=== PATIENT | female | born 1995 | race Caucasian/White ===

== ENCOUNTER 2019-02-06 14:14 | Inpatient (IN) | payer SELFPAY ==
[~2019-02-06] VITALS: Ht 162.6 cm; Wt 87.5 kg
[2019-02-06 14:56] VITALS: Ht 162.6 cm; Wt 87.5 kg
[2019-02-06 18:01] LABS: BASOPHIL % 0.3 % (0-2); PLATELET COUNT 322 x10^3mcL (130-400); RED CELL DISTRIBUTION WIDTH 13.4 % (11.5-14.5)
[2019-02-06 18:12] LABS: CALCIUM 8.7 mg/dL (8.5-10.1); CARBON DIOXIDE 25.5 mmol/L (21-32); CHLORIDE SERUM 103 mmol/L (98-107); CREATININE SERUM 0.6 mg/dL (0.6-1.0); GFR1 > 60 mL/min; GLUCOSE SERUM 89 mg/dL (74-106); POTASSIUM SERUM 3.6 mmol/L (3.5-5.1); SODIUM SERUM 139 mmol/L (136-145)
[2019-02-06 18:16] LABS: ALBUMIN 4.3 g/dL (3.4-5.0); ALKALINE PHOSPHATASE 57 U/L (46-116); ALT/SGPT 68 U/L (14-59); AST/SGOT 29 U/L (15-37); BILIRUBIN TOTAL 0.57 mg/dL (0.20-1.00); LIPASE 79 IU/L (73-393)
[2019-02-06 20:49] VITALS: BP 114/82
[2019-02-06 22:29] LABS: microscopic required? NO
[2019-02-06 22:39] LABS: urine erythrocyte NEGATIVE (NEGATIVE)
[2019-02-06 22:44] LABS: AMPHETAMINE QUAL UR NONE DETECTED (See below)
[2019-02-07 02:45] VITALS: BP 118/69
[2019-02-07 04:43] VITALS: BP 106/57
[2019-02-07 07:29] LABS: BASOPHIL % 0.1 % (0-2); PLATELET COUNT 299 x10^3mcL (130-400); RED CELL DISTRIBUTION WIDTH 13.7 % (11.5-14.5)
[2019-02-07 07:51] LABS: CARBON DIOXIDE 25.2 mmol/L (21-32); CHLORIDE SERUM 105 mmol/L (98-107); CREATININE SERUM 0.6 mg/dL (0.6-1.0); GFR1 > 60 mL/min; GLUCOSE SERUM 125 mg/dL (74-106); PHOSPHOROUS 3.3 mg/dL (2.5-4.9); SODIUM SERUM 140 mmol/L (136-145)
[2019-02-07 09:29] VITALS: BP 103/60
[2019-02-07 16:10] VITALS: BP 94/54
[2019-02-07 20:30] VITALS: BP 100/60
[2019-02-08 05:48] VITALS: BP 100/57
[2019-02-08 06:46] LABS: BASOPHIL % 0.2 % (0-2); PLATELET COUNT 246 x10^3mcL (130-400); RED CELL DISTRIBUTION WIDTH 13.8 % (11.5-14.5)
[2019-02-08 07:20] LABS: CALCIUM 7.5 mg/dL (8.5-10.1); CARBON DIOXIDE 26.9 mmol/L (21-32); CHLORIDE SERUM 108 mmol/L (98-107); CREATININE SERUM 0.6 mg/dL (0.6-1.0); GFR1 > 60 mL/min; GLUCOSE SERUM 86 mg/dL (74-106); MAGNESIUM 2.1 mg/dL (1.8-2.4); POTASSIUM SERUM 3.3 mmol/L (3.5-5.1); SODIUM SERUM 143 mmol/L (136-145)
[2019-02-08 09:23] VITALS: BP 111/73
[2019-02-08] MEDS ORDERED: APAP/HYDROCODON1 T13 PO (12:13)
== END 2019-02-08 14:16 | disposition home or self-care (01) | DRG 743 ==
LOC: ED 14:14 → MU 19:35
PROVIDERS: Emergency Medicine; ADMIT Internal Medicine
PROC: 0UT54ZZ Resection of Right Fallopian Tube, Percutaneous Endoscopic Approach (ICD-10-PCS; principal; 2019-02-07)
PROC: 0UT04ZZ Resection of Right Ovary, Percutaneous Endoscopic Approach (ICD-10-PCS; 2019-02-07)
DX: N83.511 Torsion of right ovary and ovarian pedicle (principal); N83.201 Unspecified ovarian cyst, right side; Z83.3 Family history of diabetes mellitus; Z82.49 Family history of ischemic heart disease and other diseases of the circulatory system
CPT/HCPCS: 90658; G0378; J0696; J2175; J2250; J2270; J2405; J2765; J3010; J3490; J7030; J7060; Q0092; Q9967

== ENCOUNTER 2019-08-24 12:02 | Emergency (ER) | payer OTHER ==
[~2019-08-24] VITALS: Ht 154.9 cm; Wt 90.7 kg
[~2019-08-24 12:02] MED LIST: APAP/HYDROCODON1 T13 PO
[2019-08-24 12:10] VITALS: Ht 154.9 cm; Wt 90.7 kg
[2019-08-24 13:22] LABS: BASOPHIL % 0.4 % (0-2); PLATELET COUNT 363 x10^3mcL (130-400); RED CELL DISTRIBUTION WIDTH 14.1 % (11.5-14.5)
[2019-08-24 13:36] LABS: ALBUMIN 4.1 g/dL (3.4-5.0); ALKALINE PHOSPHATASE 56 U/L (46-116); ALT/SGPT 44 U/L (14-59); AST/SGOT 17 U/L (15-37); BILIRUBIN TOTAL 0.5 mg/dL (0.20-1.00); CHLORIDE SERUM 104 mmol/L (98-107); CREATININE SERUM 0.7 mg/dL (0.6-1.0); GFR1 > 60 mL/min; GLUCOSE SERUM 91 mg/dL (74-106); LIPASE 93 IU/L (73-393); POTASSIUM SERUM 3.9 mmol/L (3.5-5.1); SODIUM SERUM 141 mmol/L (136-145); TOTAL PROTEIN, SERUM 7.8 g/dL (6.4-8.2)
[2019-08-24 13:40] LABS: CALCIUM 8.7 mg/dL (8.5-10.1)
[2019-08-24 18:56] VITALS: BP 114/74
== END 2019-08-24 18:56 | disposition home or self-care (01) ==
LOC: ED 12:02
PROVIDERS: Emergency Medicine
DX: K76.0 Fatty (change of) liver, not elsewhere classified (principal); R10.13 Epigastric pain; F17.210 Nicotine dependence, cigarettes, uncomplicated; E28.2 Polycystic ovarian syndrome; Z90.721 Acquired absence of ovaries, unilateral
CPT/HCPCS: 36415; J1885; Q0092